=== PATIENT | female | born 1955 | race Caucasian/White ===

== ENCOUNTER 2018-01-09 06:08 | Outpatient (CLI) | payer OTHER ==
[~2018-01-09] VITALS: Ht 165.1 cm; Wt 127.0 kg
== END 2018-01-09 10:40 ==
LOC: PREOP 06:08
PROVIDERS: ATTEND Specialist
DX: Z01.818 Encounter for other preprocedural examination (principal); H25.12 Age-related nuclear cataract, left eye

== ENCOUNTER 2018-01-11 06:01 | Day surgery (SDC) | payer OTHER ==
[~2018-01-11] VITALS: Ht 165.1 cm; Wt 127.0 kg
[2018-01-11 06:05] VITALS: BP 140/92
[2018-01-11] MEDS ORDERED: POVIDONE (BETADINE) OPHTH SOLN 5% 30 ML OP ONE (06:15)
[2018-01-11] MEDS ORDERED: TIMOLOL MALEATE 0.5% 5 ML (TIMOPTIC) BTL OU PRN (06:15)
[2018-01-11] MEDS ORDERED: LIDOCAINE PF 1% 2 ML AMP IR PRN (06:15)
[2018-01-11] MEDS ORDERED: EPINEPHrine INJECTION 1 MG/ML AMP INJ ONE ×2 (06:15→06:45)
[2018-01-11] MEDS ORDERED: VANCOMYCIN/BSS (COMPOUNDED) 10 MG/ML SYR OP ONE (06:15)
[2018-01-11] MEDS: TETRACAINE 0.5% OPHTH SOLN 4 ML BTL (SINGLE DOSE ONLY) OU PRN ×4 (06:21→06:30)
[2018-01-11] MEDS: PHENYLEPHRINE 10% OPHTH (NEO-SYN) 5 ML BTL OU SCH ×3 (06:24→06:30)
[2018-01-11] MEDS: CYCLOPENTOLATE 1% (CYCLOGYL) 2 ML DROPS OP SCH ×3 (06:24→06:30)
[2018-01-11] MEDS ORDERED: MIDAZOLAM 2 MG/2 ML (VERSED) VIAL ONE (06:50)
[2018-01-11 07:35] VITALS: BP 155/90
--- NOTE | 2018-01-11 07:47 | Ophthalmologist Pre-Op Note ---
Pre-Operative Progress Note H&P Reviewed The H&P was reviewed, patient examined and no changes noted. Date H&P Reviewed: Jan 11, 2018 Time H&P Reviewed: 06:50 Pre-Op Dx Cataract, Left Eye SENAIT GARCÍA MD Jan 11, 2018 07:47
--- NOTE | 2018-01-11 07:48 | Ophthalmology Operative Report ---
Cataract removal/placement IOL PREOPERATIVE DIAGNOSIS: Cataract Left Eye POSTOPERATIVE DIAGNOSIS: Cataract Left Eye PROCEDURE: Cataract removal and placement of posterior chamber implant, left eye SURGEON: Pedrito García ANESTHESIA: Topical with sedation COMPLICATIONS: None ESTIMATED BLOOD LOSS: Minimal DESCRIPTION OF PROCEDURE: After proper informed consent was obtained, the patient, a 62 female, was taken to the Operating Room and the left eye was anesthetized with tetracaine. The left eye was then prepped and draped in the usual manner. A wire lid speculum was placed. A paracentesis was made at the left hand position. Preservative free lidocaine was injected into the anterior chamber followed by viscoelastic. A clear corneal incision was made in the temporal position. A capsulorrhexis was preformed and the central nuclear and cortical material were removed. The posterior capsule was polished and an Ray 20.5 SN6CWS IOL was placed into the capsular bag. The residual viscoelastic was aspirated and balanced saline solution was injected into the anterior chamber. Vancomycin was injected into the anterior chamber. The wound was checked and found to be water tight. The patient tolerated the procedure well without complications. PEDRITO GARCÍA MD Jan 11, 2018 07:48
--- NOTE | 2018-01-11 07:57 | Anesthesia-General Post-Op ---
MAC Patient Condition Mental Status/LOC: Same as Preop Cardiovascular: Satisfactory Nausea/Vomiting: Absent Respiratory: Satisfactory Pain: Controlled Complications: Absent Post Op Complications Complications None Follow Up Care/Instructions Patient Instructions None needed. Anesthesiology Discharge Order Discharge Order Patient is doing well, no complaints, stable vital signs, no apparent adverse anesthesia problems. LACEY PIERRE DO Jan 11, 2018 07:57
== END 2018-01-11 07:35 | disposition home or self-care (01) ==
LOC: SDC 06:01
PROVIDERS: ATTEND Specialist
DX: H26.9 Unspecified cataract (principal)

== ENCOUNTER 2018-03-06 05:37 | Outpatient (CLI) | payer OTHER | END 2018-03-06 12:55 | disposition home or self-care (01) | LOC: PREOP 05:37 | PROVIDERS: ATTEND Specialist | DX: Z01.818 Encounter for other preprocedural examination (principal) ==

== ENCOUNTER 2018-03-08 05:52 | Day surgery (SDC) | payer OTHER ==
[~2018-03-08] VITALS: Ht 165.1 cm; Wt 127.0 kg
[2018-03-08 06:15] VITALS: BP 148/89
[2018-03-08] MEDS ORDERED: TIMOLOL MALEATE 0.5% 5 ML (TIMOPTIC) BTL OU PRN (06:15)
[2018-03-08] MEDS ORDERED: LIDOCAINE PF 1% 2 ML AMP IR PRN (06:15)
[2018-03-08] MEDS ORDERED: EPINEPHrine INJECTION 1 MG/ML AMP INJ ONE (06:15)
[2018-03-08] MEDS ORDERED: POVIDONE (BETADINE) OPHTH SOLN 5% 30 ML OP ONE (06:15)
[2018-03-08] MEDS ORDERED: VANCOMYCIN/BSS (COMPOUNDED) 10 MG/ML SYR OP ONE (06:15)
[2018-03-08] MEDS: TETRACAINE 0.5% OPHTH SOLN 4 ML BTL (SINGLE DOSE ONLY) OU PRN ×4 (06:16→06:34)
[2018-03-08] MEDS: PHENYLEPHRINE 10% OPHTH (NEO-SYN) 5 ML BTL OU SCH ×3 (06:23→06:34)
[2018-03-08] MEDS: CYCLOPENTOLATE 1% (CYCLOGYL) 2 ML DROPS OP SCH ×3 (06:23→06:34)
[2018-03-08] MEDS ORDERED: MIDAZOLAM 2 MG/2 ML (VERSED) VIAL ONE (06:45)
--- NOTE | 2018-03-08 07:02 | Ophthalmologist Pre-Op Note ---
Pre-Operative Progress Note H&P Reviewed The H&P was reviewed, patient examined and no changes noted. Date H&P Reviewed: Mar 08, 2018 Time H&P Reviewed: 07:02 Pre-Op Dx Cataract, Right Eye SENAIT GARCÍA MD Mar 08, 2018 07:02
--- NOTE | 2018-03-08 07:22 | Ophthalmology Operative Report ---
Cataract removal/placement IOL PREOPERATIVE DIAGNOSIS: Cataract Right Eye POSTOPERATIVE DIAGNOSIS: Cataract Right Eye PROCEDURE: Cataract removal and placement of posterior chamber implant, right eye SURGEON: Pedrito García ANESTHESIA: Topical with sedation COMPLICATIONS: None ESTIMATED BLOOD LOSS: Minimal DESCRIPTION OF PROCEDURE: After proper informed consent was obtained, the patient, a 63 female, was taken to the Operating Room and the right eye was anesthetized with tetracaine. The right eye was then prepped and draped in the usual manner. A wire lid speculum was placed. A paracentesis was made at the left hand position. Preservative free lidocaine was injected into the anterior chamber followed by viscoelastic. A clear corneal incision was made in the temporal position. A capsulorrhexis was preformed and the central nuclear and cortical material were removed. The posterior capsule was polished and Ray 20.5 SN6CWS IOL was placed into the capsular bag. The residual viscoelastic was aspirated and balanced saline solution was injected into the anterior chamber. Vancomycin was injected into the anterior chamber. The wound was checked and found to be water tight. The patient tolerated the procedure well without complications. PEDRITO GARCÍA MD Mar 08, 2018 07:22
[2018-03-08 07:30] VITALS: BP 161/84
--- NOTE | 2018-03-08 07:55 | Anesthesia-General Post-Op ---
MAC Patient Condition Mental Status/LOC: Same as Preop Cardiovascular: Satisfactory Nausea/Vomiting: Absent Respiratory: Satisfactory Pain: Controlled Complications: Absent Post Op Complications Complications None Follow Up Care/Instructions Patient Instructions None needed. Anesthesiology Discharge Order Discharge Order Patient is doing well, no complaints, stable vital signs, no apparent adverse anesthesia problems. No complications reported per nursing. GARETT BEACH CRNA Mar 08, 2018 07:55
== END 2018-03-08 07:30 | disposition home or self-care (01) ==
LOC: SDC 05:52
PROVIDERS: ATTEND Specialist
DX: H25.11 Age-related nuclear cataract, right eye (principal)

== ENCOUNTER → 2018-12-27 | Outpatient (CLI) | payer OTHER | LOC: CARD 09:51 | PROVIDERS: ATTEND Internal Medicine Cardiovascular Disease | DX: R94.31 Abnormal electrocardiogram [ECG] [EKG] (principal); E66.01 Morbid (severe) obesity due to excess calories; I34.0 Nonrheumatic mitral (valve) insufficiency | CPT/HCPCS: 93306 ==

== ENCOUNTER → 2021-03-16 | Outpatient (CLI) | payer OTHER ==
--- NOTE | 2021-03-16 17:55 | Diagnostic Imaging Report ---
EXAMINATION: MRI lumbar spine without contrast. TECHNIQUE: Multiplanar, multisequence MRI of the lumbar spine was performed without contrast. HISTORY: Chronic low back pain, previous surgery. COMPARISON: None available. FINDINGS: The alignment of the lumbar spine is normal. Vertebral bodies demonstrate normal marrow signal intensity on all sequences. There is no compression fracture. The conus medullaris terminates at the level of L1-L2. The distal spinal cord signal intensity is normal. There is disc height loss and disc desiccation at L5-S1. There are bilateral renal cysts which are incompletely evaluated. The aorta is normal. Surgical changes of the posterior back soft tissues. L1-L2: Mild facet hypertrophy. No central canal or neuroforaminal stenosis. L2-L3: Mild facet hypertrophy. No central canal or neuroforaminal stenosis. L3-L4: Mild facet and ligamentum flavum hypertrophy. Small symmetric disc bulge. Mild bilateral neuroforaminal stenosis. Mild central canal stenosis. L4-L5: Moderate facet hypertrophy. Surgical changes of the right lamina. Small symmetric disc bulge. Mild bilateral neuroforaminal stenosis. Central canal is patent. L5-S1: Mild facet hypertrophy. Surgical changes of the right lamina. No central canal stenosis. Mild bilateral neuroforaminal stenosis. IMPRESSION: 1. 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 2. Multilevel mild neural foraminal stenosis. 3. Surgical changes of L4-L5 and L5-S1. Dictated by: Dictated on workstation # [id number]
== END ==
LOC: RAD 16:15
PROVIDERS: ATTEND Physician Assistant
DX: M47.816 Spondylosis without myelopathy or radiculopathy, lumbar region (principal); M48.061 Spinal stenosis, lumbar region without neurogenic claudication; Z98.890 Other specified postprocedural states
CPT/HCPCS: 72148